=== PATIENT | female | born 1945 | race Caucasian/White ===

== ENCOUNTER → 2016-11-05 | Outpatient (CLI) | payer MEDICARE ==
--- NOTE | 2016-11-05 10:39 | REP ---
Pelvic ultrasound including transabdominal and endovaginal imaging: Comparison is 09/10/2013. The uterus is anteverted and normal size measuring 8.5-2.8 x 4.2 cm. The endometrium is not thickened measuring up to 3.2 mm on endovaginal imaging. The right and left ovaries are unable to be identified by transabdominal or endovaginal ultrasound. No adnexal masses or free fluid are identified. There are two subserosal calcifications in the myometrium: one posteriorly slightly to the right of midline and the other in the right lateral myometrium, each measuring approximately 7.0 mm in diameter, compatible with calcified small fibroids. On the comparison study. a single small calcified fibroid was identified posteriorly to the right of midline. Impression: There are two small calcified subserosal fibromas in the posterior myometrium on the right as described. The ovaries could not be identified. Otherwise, negative pelvic ultrasound.
== END ==
LOC: M WHC 09:16
PROVIDERS: ATTEND Nurse Practitioner Women's Health
DX: D25.9 Leiomyoma of uterus, unspecified (principal)

== ENCOUNTER 2017-05-29 05:56 | Day surgery (SDC) | payer MEDICARE ==
[2017-05-29] MEDS ORDERED: ACETAMINOPHEN 325 MG TAB PO (06:00)
[2017-05-29] MEDS ORDERED: OFLOXACIN 0.3 % (OCUFLOX) OPTH SOL 5ML As Ordered (06:16)
[2017-05-29] MEDS ORDERED: PHENYLEPHRINE 2.5% OPHTH SOL 2ML As Ordered (06:16)
[2017-05-29] MEDS ORDERED: CYCLOPENTOLATE 2% OPHTH SOLN 2ML BTL As Ordered (06:16)
[2017-05-29] MEDS ORDERED: TROPICAMIDE 1% OPHTH SOLN 2ML As Ordered (06:16)
[2017-05-29] MEDS: OFLOXACIN 0.3 % (OCUFLOX) OPTH SOL 5ML OD (06:30)
[2017-05-29] MEDS: TROPICAMIDE 1% OPHTH SOLN 2ML OD (06:30)
[2017-05-29] MEDS: PHENYLEPHRINE 2.5% OPHTH SOL 2ML OD (06:30)
[2017-05-29] MEDS: CYCLOPENTOLATE 2% OPHTH SOLN 2ML BTL OD (06:30)
[2017-05-29] MEDS: LIDOCAINE 3.5 % 1ML OPHTH TOPICAL GEL OU (06:34)
[2017-05-29] MEDS ORDERED: fentaNYL 100 MCG/2 ML INJECTION (J3010) As Ordered (06:57)
[2017-05-29] MEDS ORDERED: MIDAZOLAM INJ 2 MG/2 ML VIAL (J2250) As Ordered (06:58)
[2017-05-29] MEDS ORDERED: PHENYLEPHRINE HCL 10 % OPHTH. SOL 5ML OD (07:00)
[2017-05-29] MEDS ORDERED: PROPARACAINE 0.5% OPHTH SOL 15ML OD (07:01)
[2017-05-29] MEDS: POVIDONE-IODINE 5% OPHTH PREP SOL 30ML As Ordered (07:47)
[2017-05-29] MEDS: LIDOCAINE 2% W/EPIN INJ 20ML **PRES FREE As Ordered (07:49)
[2017-05-29] MEDS: LIDOCAINE 1% SDV 5 ML VIAL As Ordered (07:50)
[2017-05-29] MEDS: TRIAMCINOLONE PRES FR 40 MG/ML 1ML(TRIESENCE)(OR EYE ONLY)(J3300 PER 1MG) As Ordered (07:50)
[2017-05-29] MEDS: HEALON DUET (HEALON 10MG/ML 0.55ML & HEALON ENDOCOAT 30MG/ML 0.85ML) As Ordered (07:51)
[2017-05-29] MEDS: BSS with VANC/TOB/EPI for EYE CASES IR (07:51)
[2017-05-29] MEDS: MOXIFLOXACIN IN BSS 0.25MG/0.25ML INTRACAMERAL INJ (OR EYE ONLY)(J2280) As Ordered (07:51)
[2017-05-29] MEDS: AcetaZOLAMIDE 500 MG ER CAP PO (08:30)
[2017-05-29] MEDS ORDERED: TRIMETHOBENZAMIDE 300 MG CAP PO (08:30)
[2017-05-29] MEDS ORDERED: KETOROLAC 0.5% OPHTH SOLN OD (08:30)
[2017-05-29] MEDS ORDERED: LR 1,000 ML IV (08:30)
== END 2017-05-29 09:00 | disposition home or self-care (01) ==
LOC: M SDC 05:56
DX: H26.9 Unspecified cataract (principal); E03.9 Hypothyroidism, unspecified; Z79.899 Other long term (current) drug therapy; Z86.19 Personal history of other infectious and parasitic diseases; Z78.0 Asymptomatic menopausal state; Z98.51 Tubal ligation status
CPT/HCPCS: 66984

== ENCOUNTER 2017-12-11 07:35 | Day surgery (SDC) | payer MEDICARE ==
[~2017-12-11 07:35] MED LIST: ACETAMINOPHEN 325 MG TAB PO; MIDAZOLAM INJ 2 MG/2 ML VIAL (J2250) As Ordered; PHENYLEPHRINE HCL 10 % OPHTH. SOL 5ML OD; PROPARACAINE 0.5% OPHTH SOL 15ML OD; fentaNYL 100 MCG/2 ML INJECTION (J3010) As Ordered
[2017-12-11] MEDS: LIDOCAINE 3.5 % 1ML OPHTH TOPICAL GEL OU (08:06)
[2017-12-11] MEDS: TROPICAMIDE 1% OPHTH SOLN 2ML OD (08:06)
[2017-12-11] MEDS: OFLOXACIN 0.3 % (OCUFLOX) OPTH SOL 5ML OD (08:06)
[2017-12-11] MEDS: CYCLOPENTOLATE 2% OPHTH SOLN 2ML BTL OD (08:06)
[2017-12-11] MEDS: PHENYLEPHRINE 2.5% OPHTH SOL 2ML OD (08:07)
[2017-12-11] MEDS: POVIDONE-IODINE 5% OPHTH PREP SOL 30ML As Ordered (09:53)
[2017-12-11] MEDS: LIDOCAINE 1% SDV 5 ML VIAL As Ordered (10:27)
[2017-12-11] MEDS: HEALON DUET (HEALON 10MG/ML 0.55ML & HEALON ENDOCOAT 30MG/ML 0.85ML) As Ordered (10:27)
[2017-12-11] MEDS: MOXIFLOXACIN IN BSS 0.25MG/0.25ML INTRACAMERAL INJ (OR EYE ONLY)(J2280) As Ordered (10:27)
[2017-12-11] MEDS: BSS with VANC/TOB/EPI for EYE CASES IR (10:28)
[2017-12-11] MEDS: TRIAMCINOLONE PRES FR 40 MG/ML 1ML(TRIESENCE)(OR EYE ONLY)(J3300 PER 1MG) As Ordered (10:28)
[2017-12-11] MEDS ORDERED: AcetaZOLAMIDE 500 MG ER CAP As Ordered (10:52)
[2017-12-11] MEDS: AcetaZOLAMIDE 500 MG ER CAP PO (10:59)
[2017-12-11] MEDS: KETOROLAC 0.5% OPHTH SOLN OD (11:00)
[2017-12-11] MEDS ORDERED: TRIMETHOBENZAMIDE 300 MG CAP PO (11:00)
== END 2017-12-11 11:00 | disposition home or self-care (01) ==
LOC: M SDC 07:35
DX: H57.02 Anisocoria (principal); H52.31 Anisometropia; E03.9 Hypothyroidism, unspecified; Z79.899 Other long term (current) drug therapy; Z78.0 Asymptomatic menopausal state; Z98.51 Tubal ligation status
CPT/HCPCS: 66986

== ENCOUNTER → 2018-02-21 | Outpatient (CLI) | payer MEDICARE | LOC: M WHC 08:26 | DX: Z12.31 Encounter for screening mammogram for malignant neoplasm of breast (principal) | CPT/HCPCS: 77067 ==

== ENCOUNTER → 2019-02-23 | Outpatient (CLI) | payer MEDICARE ==
[~2019-02-23] MED LIST changes: -ACETAMINOPHEN 325 MG TAB PO; +COLLCAP2 PO; +COQ-100C2 PO; -MIDAZOLAM INJ 2 MG/2 ML VIAL (J2250) As Ordered; +MUCI600T37 PO; -PHENYLEPHRINE HCL 10 % OPHTH. SOL 5ML OD; +PREV15CA18 PO; -PROPARACAINE 0.5% OPHTH SOL 15ML OD; +SYNT125T; +VITA100067 PO; +VITATAB11 PO; -fentaNYL 100 MCG/2 ML INJECTION (J3010) As Ordered
--- NOTE | 2019-02-23 10:12 | REPMRS ---
Patient History The patient states she had a clinical breast exam in 02/2019. No known family history of cancer. Digital Woman Screen Mammo: February 23, 2019 - Exam #: [id number] Bilateral CC and MLO view(s) were taken. Technologist: Alicia Myers, Technologist Prior study comparison: February 21, 2018, bilateral digital woman screen mammo performed at [facility]. March 01, 2017, digital woman screen mammo performed at [facility]. March 01, 2016, digital woman screen mammo performed at [facility]. FINDINGS: There are scattered fibroglandular densities. There has been no change in the appearance of the mammogram from the prior studies. There is a mild amount of scattered fibroglandular density which is fairly symmetric. There is no interval development of dominant mass, architectural distortion, or grouped microcalcification suggestive of malignancy. 3-D tomosynthesis shows no additional findings. Assessment: BI-RADS/ACR category 1 mammogram. Negative Mammogram. Recommendation Routine screening mammogram of both breasts in 1 year (for women over age 40). This patient's Lifetime Breast Cancer Risk is estimated at 3.6 %. This mammogram was interpreted with the aid of an FDA-approved computer-aided dectection system. Electronically Signed By: Sajan Worrell MD 02/23/19 1012
== END ==
LOC: M WHC 08:46
PROVIDERS: ATTEND Nurse Practitioner Family
DX: Z12.31 Encounter for screening mammogram for malignant neoplasm of breast (principal)

== ENCOUNTER → 2019-11-08 | Outpatient (CLI) | payer MEDICARE | LOC: M LABSMTC 08:56 | PROVIDERS: ATTEND Orthopaedic Surgery | DX: Z01.818 Encounter for other preprocedural examination (principal); Z11.59 Encounter for screening for other viral diseases; Z20.828 Contact with and (suspected) exposure to other viral communicable diseases ==

== ENCOUNTER → 2020-02-25 | Outpatient (CLI) | payer MEDICARE ==
--- NOTE | 2020-02-25 09:38 | REPMRS ---
Patient History The patient states she had a clinical breast exam in 02/2020. Patient is postmenopausal. No known family history of cancer. No Hormone Replacement Therapy 3D TOMOSYNTHESIS WAS PERFORMED. The [employer] [facility] lifetime risk for breast cancer is 3.4%. Volpara breast density b. Digital Woman Screen Mammo: February 25, 2020 - Exam #: [id number] Bilateral CC and MLO view(s) were taken. Technologist: Susy Encarnacion, Technologist Prior study comparison: February 23, 2019, bilateral digital woman screen mammo performed at [facility] February 21, 2018, bilateral digital woman screen mammo performed at [facility]. FINDINGS: There are scattered fibroglandular densities. There has been no change in the appearance of the mammogram from the prior studies. There is a mild amount of residual fibroglandular tissue which is fairly symmetric. There is no interval development of dominant mass, architectural distortion, or clustered microcalcification suggestive of malignancy. Assessment: BI-RADS/ACR category 1 mammogram. Negative Mammogram. Recommendation Routine screening mammogram in 1 year (for women over age 40). This mammogram was interpreted with the aid of an FDA-approved computer-aided dectection system. Electronically Signed By: Emanuel Varner MD 02/25/20 0937
== END ==
LOC: M WHC 08:24
PROVIDERS: ATTEND Nurse Practitioner Family
DX: Z12.31 Encounter for screening mammogram for malignant neoplasm of breast (principal); Z78.0 Asymptomatic menopausal state

== ENCOUNTER → 2021-02-24 | Outpatient (CLI) | payer MEDICARE ==
[~2021-02-24] MED LIST changes: -PREV15CA18 PO; +PREV15CA24 PO
--- NOTE | 2021-02-24 11:25 | REPMRS ---
Patient History The patient states she had a clinical breast exam in February 2021. No known family history of cancer. No Hormone Replacement Therapy 15 lb intentional weight loss. Covid vaccines 06/17/20 right arm. 07/18/20 right arm. Patient states no breast complaints today. Patient has signed MRS History Sheet. Digital Woman Screen Mammo: February 24, 2021 - Exam #: [id number] Bilateral CC and MLO view(s) were taken. Technologist: RT Rosalio Prior study comparison: February 25, 2020, bilateral digital woman screen mammo performed at [facility]. February 23, 2019, bilateral digital woman screen mammo performed at [facility]. FINDINGS: There are scattered fibroglandular densities. Screening. Digital screening (2D) mammography was performed bilaterally in the CC and MLO projections. Additionally, breast tomosynthesis (3D mammography) was performed bilaterally in the CC and MLO projections. Todays exam was compared to the prior exam/exams. By history, the patient has no complaints of a palpable breast abnormality or other significant breast complaints. The breasts are unchanged in size and shape. There are no carlie-soft tissue densities or spiculated masses. There is no internal architectural distortion. Once again, stable benign appearing calcifications are seen.There are no suspicious carlie-calcific clusters. Skin thickening or nipple retraction is not present. IMPRESSION: BI-RADS Category 2- Benign Findings. There is no evidence of malignant alteration of the breasts. Followup examination recommended in one year. The Volpara volumetric breast density category is B, there are scattered areas of fibroglandular densities. This mammogram was read with the assistance of [facility] [employer],an FDA approved computer aided detection system for mammography. The lifetime Tyrer-Cuzick score is 3.1% Negative x-ray reports should not delay surgical consultation if a dominant or clinically suspicious mass is present. Not all breast cancers can be identified by mammography. Therefore, we recommend that you continue to perform regular breast self-examination and physical examination and then promptly contact your physician of any concerns or changes. Adenosis and dense breasts may obscure an underlying neoplasm. Assessment: BI-RADS/ACR category 2 mammogram. Benign Findings. Recommendation Routine screening mammogram of both breasts in 1 year. Electronically Signed By: Malcolm Romero DO 02/24/21 1124
== END ==
LOC: M WHC 09:12
PROVIDERS: ATTEND Advanced Practice Midwife
DX: Z12.31 Encounter for screening mammogram for malignant neoplasm of breast (principal); R92.1 Mammographic calcification found on diagnostic imaging of breast

== ENCOUNTER → 2021-06-26 | Outpatient (CLI) | payer MEDICARE ==
[~2021-06-26] MED LIST changes: -SYNT125T; +SYNT125T PO; +VITMTA PO
== END ==
LOC: M RAD 09:09
PROVIDERS: ATTEND Internal Medicine Hematology & Oncology
DX: D69.6 Thrombocytopenia, unspecified (principal); K76.89 Other specified diseases of liver

== ENCOUNTER → 2021-07-20 | Outpatient (CLI) | payer MEDICARE ==
[~2021-07-20] MED LIST changes: +LIDOCAINE 1% MDV 20ML VIAL As Ordered ONE; +VITA-243 PO
[2021-07-20 11:17] LABS: BASO % 0.5 % (0.0-1.0); EOS # 0.1 10^3/uL (0.0-0.5); EOS % 1.1 % (0.0-3.0); HEMATOCRIT 38.8 % (36.0-47.0); HEMOGLOBIN 12.9 g/dl (12.0-15.5); LYMPH # 1.7 10^3/uL (1.5-5.0); LYMPH % 27.2 % (24.0-44.0); MEAN CORPUSCULAR HEMOGLOBIN 32.1 pg (27.0-33.0); MEAN CORPUSCULAR HGB CONC 33.2 g/dl (32.0-36.5); MEAN CORPUSCULAR VOLUME 96.5 fl (80.0-96.0); MONO # 0.4 10^3/uL (0.0-0.8); MONO % 7.2 % (2.0-8.0); NEUTROPHILS # 3.9 10^3/uL (1.5-8.5); NEUTROPHILS % 63.7 % (36.0-66.0); RED BLOOD COUNT 4.02 10^6/uL (4.00-5.40); WHITE BLOOD COUNT 6.2 10^3/uL (4.0-10.0)
[2021-07-20 11:18] LABS: PLATELET COUNT, AUTOMATED 69 10^3/uL (150-450)
[2021-07-20 12:10] VITALS: BP 174/82
== END ==
LOC: M IRPRO 10:07
PROVIDERS: ATTEND Internal Medicine Hematology & Oncology
DX: D69.6 Thrombocytopenia, unspecified (principal)

== ENCOUNTER → 2021-10-16 | Outpatient (CLI) | payer MEDICARE ==
[~2021-10-16] MED LIST changes: -LIDOCAINE 1% MDV 20ML VIAL As Ordered ONE
== END ==
LOC: M WUC 14:28
PROVIDERS: ATTEND Physician Assistant
DX: M25.571 Pain in right ankle and joints of right foot (principal)

== ENCOUNTER → 2022-01-21 | Outpatient (CLI) | payer MEDICARE ==
[~2022-01-21] MED LIST changes: +FLUC150T9
== END ==
LOC: M LABSMTC 10:37
PROVIDERS: ATTEND Anesthesiology
DX: Z01.812 Encounter for preprocedural laboratory examination (principal); Z20.822 Contact with and (suspected) exposure to COVID-19

== ENCOUNTER 2022-01-24 07:19 | Day surgery (SDC) | payer MEDICARE ==
[~2022-01-24] VITALS: Ht 170.2 cm; Wt 87.9 kg
[~2022-01-24 07:19] MED LIST changes: +ACETYLCHOLINE OPHTH SOLN 1% 2ML (MIOCHOL-E) As Ordered ONE; +BSS IRRIG/VANCO(10MG)/TOBRA(5MG)/EPINEPH(1:1000-0.5CC)500ML BAG-ORONLY IR ONE; +CEFUROXIME 1MG/0.1ML INTRACAMERAL INJ As Ordered ONE; +LIDOCAINE 1% SDV 5ML VIAL As Ordered ONE; +LIDOCAINE 3.5 % 1ML OPHTH TOPICAL GEL OU ONE; +OFLOXACIN 0.3 % (OCUFLOX) OPTH SOL 5ML OS ONE; +PHENYLEPHRINE HCL 10 % OPHTH. SOL 5ML OS PRN
[2022-01-24] MEDS: CYCLOPENTOLATE 1% OPHTH SOLN 2 ML BTL OS SCH ×3 (07:43→07:54)
[2022-01-24] MEDS: TROPICAMIDE 1% OPHTH SOLN 2ML OS SCH ×3 (07:43→07:54)
[2022-01-24] MEDS: PHENYLEPHRINE 2.5% OPHTH SOL 2ML OS SCH ×3 (07:43→07:54)
[2022-01-24 08:40] VITALS: BP 148/75
[2022-01-24] MEDS ORDERED: fentaNYL 100 MCG/2 ML INJECTION As Ordered ONE (08:44)
[2022-01-24] MEDS ORDERED: MIDAZOLAM INJ 2MG/2ML VIAL (J2250 PER 1MG) As Ordered ONE (08:44)
[2022-01-24] MEDS ORDERED: acetaZOLAMIDE 500MG ER CAP PO STA (08:47)
== END 2022-01-24 08:58 | disposition home or self-care (01) ==
LOC: M SDC 07:19
PROVIDERS: ATTEND Ophthalmology
DX: H25.12 Age-related nuclear cataract, left eye (principal); E03.9 Hypothyroidism, unspecified; Z79.899 Other long term (current) drug therapy
CPT/HCPCS: 66984; 92015; J0697; J2250; J3010; V2788

== ENCOUNTER → 2022-02-27 | Outpatient (CLI) | payer MEDICARE ==
[~2022-02-27] MED LIST changes: -ACETYLCHOLINE OPHTH SOLN 1% 2ML (MIOCHOL-E) As Ordered ONE; -BSS IRRIG/VANCO(10MG)/TOBRA(5MG)/EPINEPH(1:1000-0.5CC)500ML BAG-ORONLY IR ONE; -CEFUROXIME 1MG/0.1ML INTRACAMERAL INJ As Ordered ONE; -LIDOCAINE 1% SDV 5ML VIAL As Ordered ONE; -LIDOCAINE 3.5 % 1ML OPHTH TOPICAL GEL OU ONE; -OFLOXACIN 0.3 % (OCUFLOX) OPTH SOL 5ML OS ONE; -PHENYLEPHRINE HCL 10 % OPHTH. SOL 5ML OS PRN
== END ==
LOC: M WHC 15:52
PROVIDERS: ATTEND Physician Assistant
DX: Z12.39 Encounter for other screening for malignant neoplasm of breast (principal); Z12.31 Encounter for screening mammogram for malignant neoplasm of breast

== ENCOUNTER → 2022-07-23 | Outpatient (CLI) | payer MEDICARE ==
[2022-07-23 17:43] LABS: BASO % 0.4 % (0.0-1.0); EOS # 0.1 10^3/uL (0.0-0.5); EOS % 0.5 % (0.0-3.0); HEMATOCRIT 42.6 % (36.0-47.0); HEMOGLOBIN 13.9 g/dl (12.0-15.5); LYMPH % 18.3 % (24.0-44.0); MEAN CORPUSCULAR HEMOGLOBIN 31.9 pg (27.0-33.0); MEAN CORPUSCULAR HGB CONC 32.6 g/dl (32.0-36.5); MEAN CORPUSCULAR VOLUME 97.7 fl (80.0-96.0); MONO # 0.8 10^3/uL (0.0-0.8); NEUTROPHILS # 8.1 10^3/uL (1.5-8.5); NEUTROPHILS % 73.5 % (36.0-66.0); PLATELET COUNT, AUTOMATED 127 10^3/uL (150-450); RED BLOOD COUNT 4.36 10^6/uL (4.00-5.40)
[2022-07-25 13:08] LABS: EBV VIRAL CAPSID AG IgM <36.0 U/mL (0.0-35.9)
== END ==
LOC: M WUC 12:02
PROVIDERS: ATTEND Physician Assistant
DX: R59.0 Localized enlarged lymph nodes (principal)

== ENCOUNTER → 2022-11-20 | Outpatient (CLI) | payer MEDICARE | LOC: M WUC 09:05 | PROVIDERS: ATTEND Physician Assistant | DX: J18.1 Lobar pneumonia, unspecified organism (principal) ==

== ENCOUNTER → 2022-11-30 | Outpatient (CLI) | payer MEDICARE | LOC: M WUC 15:44 | PROVIDERS: ATTEND Physician Assistant | DX: J18.0 Bronchopneumonia, unspecified organism (principal) ==

== ENCOUNTER → 2022-12-21 | Outpatient (CLI) | payer MEDICARE | LOC: M WUC 15:33 | PROVIDERS: ATTEND Internal Medicine | DX: J18.1 Lobar pneumonia, unspecified organism (principal) ==

== ENCOUNTER → 2023-02-21 | Outpatient (CLI) | payer MEDICARE ==
[2023-02-21 11:22] LABS: HEMATOCRIT 40.5 % (36.0-47.0); HEMOGLOBIN 13.2 g/dl (12.0-15.5); MEAN CORPUSCULAR HEMOGLOBIN 31.9 pg (27.0-33.0); MEAN CORPUSCULAR HGB CONC 32.6 g/dl (32.0-36.5); MEAN CORPUSCULAR VOLUME 97.8 fl (80.0-96.0); RED BLOOD COUNT 4.14 10^6/uL (4.00-5.40); WHITE BLOOD COUNT 6.4 10^3/uL (4.0-10.0)
[2023-02-21 11:45] LABS: ALBUMIN 3.6 G/DL (3.2-5.2); ALKALINE PHOSPHATASE 66 U/L (46-116); ALT/SGPT 17 U/L (7.0-40); AST/SGOT 18 U/L (<34); BILIRUBIN,TOTAL 0.4 MG/DL (0.3-1.2); BLOOD UREA NITROGEN 14 MG/DL (9-23); CARBON DIOXIDE LEVEL 28 MMOL/L (20-31); CHLORIDE LEVEL 105 MMOL/L (98-107); CHOLESTEROL LEVEL 214 MG/DL (<200); CHOLESTEROL RISK RATIO 3.39 (<5); CREATININE FOR GFR 0.84 MG/DL (0.55-1.30); GLOMERULAR FILTRATION RATE > 60.0 (>39); GLUCOSE, FASTING 85 MG/DL (74-106); HDL CHOLESTEROL 63.1 MG/DL (>40); LDL CHOLESTEROL 128.7 MG/DL (<100); NON-HDL-C 150.9 MG/DL; POTASSIUM SERUM 4.2 MMOL/L (3.5-5.1); SODIUM LEVEL 140 MMOL/L (136-145); TOTAL PROTEIN 6.9 G/DL (5.7-8.2); TRIGLYCERIDES LEVEL 111 MG/DL (<150)
[2023-02-21 11:50] LABS: PLATELET COUNT, AUTOMATED 77 10^3/uL (150-450)
== END ==
LOC: M WUC 08:29
PROVIDERS: ATTEND Physician Assistant
DX: E78.5 Hyperlipidemia, unspecified (principal); E03.9 Hypothyroidism, unspecified

== ENCOUNTER → 2023-04-01 | Outpatient (CLI) | payer MEDICARE | LOC: M WHC 09:13 | PROVIDERS: ATTEND Nurse Practitioner Family | DX: Z12.31 Encounter for screening mammogram for malignant neoplasm of breast (principal) ==

== ENCOUNTER → 2023-04-01 | Outpatient (REF) | payer MEDICARE | LOC: M SFHCWAGY 13:47 | PROVIDERS: ATTEND Nurse Practitioner Family | DX: N73.9 Female pelvic inflammatory disease, unspecified (principal) ==

== ENCOUNTER → 2023-07-09 | Outpatient (CLI) | payer MEDICARE | LOC: M WUC 13:31 | PROVIDERS: ATTEND Physician Assistant | DX: J18.1 Lobar pneumonia, unspecified organism (principal) ==

== ENCOUNTER 2024-02-20 09:45 | Day surgery (SDC) | payer MEDICARE ==
[~2024-02-20] VITALS: Ht 170.2 cm; Wt 81.2 kg
[~2024-02-20 09:45] MED LIST changes: +CLOB0.0548 VG; +ESTR0.1C5 VG; +NS 250 ML IV ONE; +PREV30TA3 PO; +THERTAB52 PO; +UBIQ200C3 PO
[2024-02-20] MEDS ORDERED: propofoL 200 MG/20 ML VIAL As Ordered ONE (10:11)
[2024-02-20] MEDS ORDERED: LIDOCAINE 2% 100MG/5ML SDV (FOR ANES.) As Ordered ONE (10:11)
[2024-02-20] MEDS ORDERED: dexmedeTOMIDine (4MCG/ML)200MCG/50ML BTL (PRECEDEX) As Ordered ONE (10:11)
[2024-02-20 11:40] VITALS: BP 104/61; O2SAT 99
== END 2024-02-20 11:40 | disposition home or self-care (01) ==
LOC: M OPP 09:45
PROVIDERS: ATTEND Surgery
DX: Z12.11 Encounter for screening for malignant neoplasm of colon (principal); D12.5 Benign neoplasm of sigmoid colon; K21.00 Gastro-esophageal reflux disease with esophagitis, without bleeding; K64.2 Third degree hemorrhoids; K44.9 Diaphragmatic hernia without obstruction or gangrene; K31.89 Other diseases of stomach and duodenum; K57.30 Diverticulosis of large intestine without perforation or abscess without bleeding; K29.80 Duodenitis without bleeding; K29.70 Gastritis, unspecified, without bleeding; Z86.0100 Personal history of colon polyps, unspecified; E03.9 Hypothyroidism, unspecified; D69.6 Thrombocytopenia, unspecified; Z79.890 Hormone replacement therapy; Z79.899 Other long term (current) drug therapy

== ENCOUNTER → 2024-04-06 | Outpatient (CLI) | payer MEDICARE ==
[~2024-04-06] MED LIST changes: -NS 250 ML IV ONE
== END ==
LOC: M WHC 09:26
PROVIDERS: ATTEND Nurse Practitioner Family
DX: Z13.820 Encounter for screening for osteoporosis (principal); M85.88 Other specified disorders of bone density and structure, other site

== ENCOUNTER → 2024-04-06 | Outpatient (CLI) | payer MEDICARE | LOC: M WHC 09:25 | PROVIDERS: ATTEND Nurse Practitioner Family | DX: Z12.31 Encounter for screening mammogram for malignant neoplasm of breast (principal); R92.323 Mammographic fibroglandular density, bilateral breasts ==

== ENCOUNTER → 2024-04-06 | Outpatient (REF) | payer MEDICARE | LOC: M SFHCWAGY 13:09 | PROVIDERS: ATTEND Nurse Practitioner Family | DX: R10.2 Pelvic and perineal pain (principal) ==

== ENCOUNTER → 2025-04-07 | Outpatient (CLI) | payer MEDICARE | LOC: M WHC 10:03 | PROVIDERS: ATTEND Nurse Practitioner Family | DX: Z12.31 Encounter for screening mammogram for malignant neoplasm of breast (principal); R92.323 Mammographic fibroglandular density, bilateral breasts ==

== ENCOUNTER → 2025-04-07 | Outpatient (REF) | payer MEDICARE | LOC: M SFHCWAGY 15:10 | PROVIDERS: ATTEND Nurse Practitioner Family | DX: M85.80 Other specified disorders of bone density and structure, unspecified site (principal) ==